=== PATIENT | female | born 1985 | race Caucasian/White ===

== ENCOUNTER 2017-10-01 18:23 | Emergency (ER) | payer OTHER ==
[2017-10-01] MEDS ORDERED: Ketorolac INJ* 60 MG/2 ML VIAL IM ONE (19:22)
[2017-10-01] MEDS ORDERED: oxyCODONE/Acetamin 5/325 MG* TAB PO ONE (19:22)
--- NOTE | 2017-10-01 19:58 | RAD ---
HISTORY: Fall, head trauma COMPARISONS: MRI of the brain dated May 29, 2012 TECHNIQUE: Multiple contiguous axial CT scans were obtained of the head without intravenous contrast. FINDINGS: HEMORRHAGE/INFARCT: There is no hemorrhage or acute infarct. MASSES/SHIFT: There is no mass or shift. EXTRA-AXIAL SPACES: There are no extra-axial fluid collections. SULCI AND VENTRICLES: The sulci and ventricles are normal in size and position for the patient's stated age. CEREBRUM: There are no focal parenchymal abnormalities. BRAINSTEM: There are no focal parenchymal abnormalities. CEREBELLUM: There are no focal parenchymal abnormalities. VESSELS: The vessels are grossly normal. PARANASAL SINUSES: The paranasal sinuses are clear. ORBITS: The orbits are unremarkable. BONES AND SOFT TISSUE: No bone or soft tissue abnormalities are noted. OTHER: None IMPRESSION: NO ACUTE INTRACRANIAL PATHOLOGY.
--- NOTE | 2017-10-01 20:00 | RAD ---
HISTORY: Fall, back pain COMPARISONS: None TECHNIQUE: Multiple contiguous axial CT scans were obtained of the lumbar spine without intravenous contrast, with coronal and sagittal multiplanar reformations. FINDINGS: SPINAL CANAL: Evaluation of the central canal is limited on CT technique; however, there is no obvious canalicular mass or epidural hemorrhage. ALIGNMENT: The alignment is normal. VERTEBRAL BODIES: The vertebral bodies are preserved in height. The bones are normal in attenuation. The 12th ribs are hypoplastic. JOINTS: There is no subluxation or dislocation. MUSCULATURE: Unremarkable INTERVERTEBRAL DISCS: There is mild diffuse loss of intervertebral disc height throughout the spine. AXIAL IMAGES: T12-L1: There is no osseous neural foraminal narrowing or central canal stenosis. L1-L2: There is no osseous neural foraminal narrowing or central canal stenosis. L2-L3: There is no osseous neural foraminal narrowing or central canal stenosis. L3-L4: There is no osseous neural foraminal narrowing or central canal stenosis. L4-L5: There is mild broad-based disc bulge. There is no osseous neural foraminal narrowing or central canal stenosis. L5-S1: There is a mild broad-based disc bulge. There is no osseous neural foraminal narrowing or central canal stenosis. SOFT TISSUES: The visualized soft tissues of the abdomen are unremarkable. OTHER: None IMPRESSION: NO ACUTE OSSEOUS INJURY TO THE LUMBAR SPINE.
--- NOTE | 2017-10-01 20:17 | ED ---
Eugenio Osorio Tiffany, scribed for Regan Ocampo MD on 10/01/17 at 2012 . Back Pain - HPI Summary HPI Summary: 32 y/[facility] F [facility] complains of low back pain s/p mechanical fall backwards , hitting her lower back and head two hours ago. The patient rates the pain 8/ 10 in severity. Symptoms aggravated by movement. Symptoms alleviated by nothing. Reports head pain. Denies neck pain. - History of Current Complaint Chief Complaint: EDBackInjuryPain Stated Complaint: FALL, BACK PAIN Time Seen by Provider: 10/01/17 19:16 Hx Obtained From: Patient Hx Last Menstrual Period: novasure Onset/Duration: Lasting Hours - 2 hrs, Still Present Timing: Constant Severity Currently: Moderate Pain Intensity: 8 Pain Scale Used: 0-10 Numeric Aggravating Symptom(s): Movement Alleviating Symptom(s): Nothing Associated Signs And Symptoms: Positive: Negative - Neck pain, Other - Head pain - Allergies/Home Medications Allergies/Adverse Reactions: Allergies Allergy/AdvReac Type Severity Reaction Status Date / Time MS Latex [Latex] Allergy Severe SWELLING Verified 05/26/17 11:46 BURNING MS Moxifloxacin [From Avelox] Allergy Severe STOMACH Verified 05/26/17 11:46 CRAMPS, VOMITING FISH AND ALL SEAFOOD Allergy Severe THROAT Uncoded 05/26/17 11:46 SWELLS, DIFFICULTY BREATHING SULFA Allergy Severe VOMITING, Uncoded 05/26/17 11:46 ITCHING ENVIRONMENT Allergy Intermediate Itching Uncoded 05/26/17 11:46 PMH/Surg Hx/FS Hx/Imm Hx Previously Healthy: No Endocrine/Hematology History: Reports: Hx Thyroid Disease - low thyroid Denies: Hx Diabetes Cardiovascular History: Reports: Hx Peripheral Vascular Disease - RIGHT LEG AND CALF SWOLLEN VEINS OCCASIONAL Denies: Hx Hypertension, Hx Pacemaker/ICD Respiratory History: Reports: Hx Asthma - USES INHALER PRN Denies: Hx Chronic Obstructive Pulmonary Disease (COPD) GI History: Denies: Hx Ulcer History: Denies: Hx Dialysis, Hx Renal Disease Musculoskeletal History: Reports: Other Musculoskeletal History - LOWER BACK FEELS MISALIGNED Sensory History: Reports: Hx Contacts or Glasses - GLASSES Denies: Hx Hearing Aid Opthamlomology History: Reports: Hx Contacts or Glasses - GLASSES Neurological History: Reports: Hx Headaches, Hx Migraine - CHRONIC, Other Neuro Impairments/Disorders - 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 2007 LAPAROSCOPIC BILATERAL TUBAL LIGATION,[facility];. 2008 LAPAROSCOPIC APPENDIX, [facility];. 04/04/2015 LEEP, OFFICE;. APR 2015 NOVASURE ABLASION WITH DEVICE REMOVED;. TEETH REMOVED Hx Anesthesia Reactions: No Infectious Disease History: No Infectious Disease History: Denies: Hx Clostridium Difficile, Hx Hepatitis, Hx Human Immunodeficiency Virus (HIV), Hx of Known/Suspected MRSA, Hx Shingles, Hx Tuberculosis, Hx Known/ Suspected VRE, Hx Known/Suspected VRSA, History Other Infectious Disease, Traveled Outside the [place] in Last 30 Days - Family History Known Family History: Positive: Hypertension Negative: Cardiac Disease, Diabetes - Social History Alcohol Use: None Hx Substance Use: No Substance Use Type: Reports: None Hx Tobacco Use: Yes Smoking Status (MU): Heavy Every Day Tobacco Smoker Type: Cigarettes Amount Used/How Often: 4-10 CIGARETTES PER DAY Have You Smoked in the Last Year: Yes Review of Systems Negative: Fever Musculoskeletal: Negative - Neck pain Positive: Other - Head pain, back pain All Other Systems Reviewed And Are Negative: Yes Physical Exam - Summary Physical Exam Summary: VITAL SIGNS: Reviewed. GENERAL: Patient is a well-developed and nourished female who is lying comfortable in the stretcher. Patient is not in any acute respiratory distress. HEAD AND FACE: No signs of trauma. No ecchymosis, hematomas or skull depressions. No sinus tenderness. Head has FROM. EYES: PERRLA, EOMI x 2, No injected conjunctiva, no nystagmus. EARS: Hearing grossly intact. Ear canals and tympanic membranes are within normal limits. MOUTH: Oropharynx within normal limits. NECK: Supple, trachea is midline, no adenopathy, no JVD, no carotid bruit, no c- spine tenderness, neck with full ROM. CHEST: Symmetric, no tenderness at palpation LUNGS: Clear to auscultation bilaterally. No wheezing or crackles. CVS: Regular rate and rhythm, S1 and S2 present, no murmurs or gallops appreciated. ABDOMEN: Soft, non-tender. No signs of distention. No rebound no guarding, and no masses palpated. Bowel sounds are normal. BACK: No tenderness over C-spine. Tenderness over L-Spine. EXTREMITIES: Bilateral leg raise test is positive (right leg at 50 degrees, left leg at 40 degrees) NEURO: Alert and oriented x 3. No acute neurological deficits. Speech is normal and follows commands. SKIN: Dry and warm Triage Information Reviewed: Yes Vital Signs On Initial Exam: Initial Vitals Temp Pulse Resp BP Pulse Ox 99.3 F 80 16 113/73 100 10/01/17 18:41 10/01/17 18:41 10/01/17 18:41 10/01/17 18:41 10/01/17 18:41 Vital Signs Reviewed: Yes Diagnostics - Vital Signs Vital Signs Temp Pulse Resp BP Pulse Ox 10/01/17 19:33 16 10/01/17 18:41 99.3 F 80 16 113/73 100 - Laboratory Lab Statement: Any lab studies that have been ordered have been reviewed, and results considered in the medical decision making process. - CT Brain CT Interpretation Completed By: Radiologist - NO ACUTE INTRACRANIAL PATHOLOGY.ED physician has reviewed this report. L-Spine CT Interpretation Completed By: Radiologist - NO ACUTE OSSEOUS INJURY TO THE LUMBAR SPINE. ED physician has reviwed this report. Back Pain Course/Dx - Course Course Of Treatment: 32 y/o F VIOLET to [facility] complains of low back pain s/p mechanical fall backwards, hitting her lower back and head two hours ago. Brain CT, L-Spine CT normal. Pt will be discharged home with prescription for Flexril and Motrin. - Diagnoses Provider Diagnoses: Low back pain Discharge - Sign-Out/Discharge Documenting (check all that apply): Discharge/Admit/Transfer - Discharge Plan Condition: Stable Disposition: HOME Prescriptions: Cyclobenzaprine TAB* [Flexeril 10 MG TAB*] 10 mg PO BID PRN #14 tab PRN Reason: Spasms - Back Ibuprofen TAB* [Motrin TAB* 600 MG] 600 mg PO Q6H PRN #30 tab PRN Reason: Pain Patient Education Materials: Back Pain (ED) Referrals: Yifan Connor MD [Primary Care Provider] - 3 Days Additional Instructions: Follow up with your primary care provider in 3 days. Return to the Emergency Department for any new or worsening symptoms. The documentation as recorded by the scribe, Becekr,Stacie accurately reflects the service I personally performed and the decisions made by me, Regan Ocampo MD.
[2017-10-01 20:23] VITALS: BP 128/69
== END 2017-10-01 20:22 | disposition home or self-care (01) ==
LOC: ED 18:23
DX: M54.5 Low back pain (principal); R51 Headache; W19.XXXA Unspecified fall, initial encounter; F17.210 Nicotine dependence, cigarettes, uncomplicated; Z88.8 Allergy status to other drugs, medicaments and biological substances; Z88.2 Allergy status to sulfonamides
CPT/HCPCS: 70450; 72131; 96372; 99283; A9270-GY; J1885